=== PATIENT | female | born 1965 | race African-American/Black ===

== ENCOUNTER → 2017-09-05 | Outpatient (CLI) | payer OTHER ==
--- NOTE | 2017-09-05 10:58 | RAD ---
Chest, chest, 2 views, 09/05/2017: History: Check pacemaker placement No previous chest radiographs are available at this time for comparison purposes. A right-sided transvenous pacing device is in place. The tip of the right atrial lead lies anteriorly in the upper right atrium. The tip of the right ventricular lead overlies the anterior inferior aspect of the right ventricle. A third lead is projected over the posterior aspect of the heart and presumably lies in a cardiac vein. The heart is at the upper limits of normal in size. The pulmonary vascularity is normal. No pulmonary infiltrates are seen. There is no evidence of pleural fluid. Mild spurring is present in the spine. IMPRESSION: 1. Right-sided transvenous pacing device in place as described above. 2. No acute cardiopulmonary abnormality is detected.
== END | disposition home or self-care (01) ==
LOC: DXRAD 09:42
PROVIDERS: ATTEND Internal Medicine Cardiovascular Disease
DX: M46.00 Spinal enthesopathy, site unspecified (principal); Z95.810 Presence of automatic (implantable) cardiac defibrillator
CPT/HCPCS: 71046